=== PATIENT | male | born 1975 | race Caucasian/White ===

== ENCOUNTER 2016-07-31 09:36 | Day surgery (SDC) | payer BC ==
[2016-07-31 10:33] VITALS: PULSE 78
[2016-07-31] MEDS ORDERED: LR 1,000 ML IV ONE (10:34)
[2016-07-31] MEDS ORDERED: LIDOCAINE 1% 2 ML INJ ID PRN (10:34)
[2016-07-31] MEDS ORDERED: ONDANSETRON 4 MG/2 ML VIAL IVP PRN (12:55)
[2016-07-31] MEDS ORDERED: ACETAMINOPHEN 500 MG TAB PO PRN (12:55)
[2016-07-31] MEDS ORDERED: ALBUTEROL 3 ML DEYVIAL IH PRN (12:55)
[2016-07-31] MEDS ORDERED: NALOXONE HCL 0.4 MG/ML INJ IVP PRN (12:55)
--- NOTE | 2016-07-31 12:55 | PDANEPAE ---
ANE History of Present Illness DVERTICULITIS AND ESOPHAGEAL MOTILITY ISSUES ANE Past Medical History Past Medical History: flora - Cardiovascular History Hx Hypertension: No Hx Arrhythmias: No Hx Chest Pain: No Hx Coronary Artery / Peripheral Vascular Disease: No Hx CHF / Valvular Disease: No Hx Palpitations: No - Pulmonary History Hx COPD: No Hx Asthma/Reactive Airway Disease: No Hx Recent Upper Respiratory Infection: No Hx Oxygen in Use at Home: No - Neurologic History Hx Cerebrovascular Accident: No Hx Seizures: No Hx Dementia: No - Endocrine History Hx Diabetes: No - Renal History Hx Renal Disorders: No - Liver History Hx Hepatic Disorders: No - Neurological & Psychiatric Hx Hx Neurological and Psychiatric Disorders: No - Cancer History Hx Cancer: No - Congenital Disorder History Hx Congenital Disorders: No - GI History Hx Gastrointestinal Disorders: Yes - Chronic Pain History Chronic Pain: No ANE Review of Systems - Exercise capacity Exercise capacity: >=4 METS METS (RN): 4 METS - Systems Constitutional: Reports: no symptoms Cardiac: Reports: no symptoms Respiratory: Reports: no symptoms Gastrointestinal: Reports: other (as HPI) Muscolosketal: Reports: no symptoms ANE Patient History - Allergies Allergies/Adverse Reactions: No Known Allergies Allergy (Verified 07/31/16 10:37) - Home Medications Home Medications: PRILOSEC 06/28/16 [Last Taken 07/29/16] - NPO status NPO Since - Liquids (Date): 07/31/16 NPO Since - Liquids (Time): 05:00 NPO Since - Solids (Date): 07/30/16 NPO Since - Solids (Time): 12:00 - Anes Hx Anes Hx: no prior problems - Smoking Hx Smoking Status: Never smoked - Alcohol Use Alcohol Use: Occasionally ANE Labs/Vital Signs - Vital Signs Blood Pressure: 140/93 Heart Rate: 78 Respiratory Rate: 16 O2 Sat (%): 94 Height: 175.26 cm Weight: 124.738 kg ANE Physical Exam - Airway Mallampati Score: Class 2 Mouth exam: normal dental/mouth exam - Pulmonary Pulmonary: no respiratory distress - Cardiovascular Cardiovascular: regular rate and rhythym - ASA Status ASA Status: II ANE Anesthesia Plan Anesthesia Plan: GA with mask
[2016-07-31] MEDS ORDERED: PROPOFOL/EMULSION 500 MG/50 ML BOTTLE IV ONE ×2 (13:01→13:21)
[2016-07-31] MEDS ORDERED: LIDOCAINE 2% 5 ML SDV ONE (13:01)
--- NOTE | 2016-07-31 13:06 | PDGENHP ---
History & Physical Chief Complaint: heartburn, abnormal imaging History of Present Illness: 41 year old male wiht significant inflammation in the sigmoid colon presents for further evaluation. + diverticulitis. Chronic GERD. Pertinent Past, Social, Family History: SoHx: + alc. No cigs. FaMHx: No CRC. PMHx: JUANY, obesitiy, gerd, asthma Relevant Physical Exam: HEENT: anicteric. CV: RRR + s1s2. Lungs: CTAB No w/r/ r. Abd: benign Cardiorespiratory Assessment: ASA 3
--- NOTE | 2016-07-31 13:46 | POSTOPPROG ---
Post Op Note Date of Operation: 07/31/16 Surgeon: Germán Lira Pre-op Diagnosis: dysphagia, heartburn, abdno Post-op Diagnosis: colonic polyps x 2. HH. gastritis Indication: dysphagia. Abnl imaging Procedure: EGD with bx, colonoscopy with snare Findings: polyps, gastritis, gastric polyps Inf/Abcess present in the surg proc area at time of surgery?: No
[2016-07-31] MEDS ORDERED: fentaNYL 100 MCG/2 ML INJ ONE (14:08)
[2016-07-31] MEDS: fentaNYL 100 MCG/2 ML INJ IVP PRN ×2 (14:09→14:17)
[2016-07-31 14:14] VITALS: TEMP 97.9
--- NOTE | 2016-07-31 14:47 | GPN ---
[f rep st] PROCEDURE NOTE DATE OF PROCEDURE: 07/31/2016 PROCEDURE: Esophagogastroduodenoscopy with biopsy. INDICATION: The patient is a 41-year-old male who presents for evaluation of heartburn, as well as dysphagia. CONSENT: Risks, benefits, and alternatives of the procedure were discussed in great detail with the patient. Risks of infection, bleeding, perforation, and sedation were discussed. All questions answered and informed consent obtained. MEDICATIONS: Propofol. Please see anesthesiology record for details. ESTIMATED BLOOD LOSS: Insignificant. ESOPHAGOGASTROSCOPY EXAMINATION: The Olympus upper endoscope was inserted in the mouth and advanced to the esophagus. The proximal and mid esophagus were normal in appearance. Biopsies were taken of the midesophagus to rule out eosinophilic esophagitis. The patient was noted to have an irregular Z line and biopsies were taken. No esophagus was widely patent with no stricture or stenosis noted. The stomach was entered and closely examined, including retroflexed views of angularis, cardia, and fundus. A medium-sized hiatal hernia was noted. The mucosa in the antrum and the body of the stomach were erythematous in patchy distribution and biopsies were taken. Along the greater curvature, multiple small sessile polyps were seen and biopsies were taken. The duodenal bulb and second portion of the duodenum were normal in appearance. Biopsies taken to rule out celiac sprue. IMPRESSION: 1. Biopsies taken to rule out eosinophilic esophagitis. 2. Irregular Z-line, status post biopsy. 3. Hiatal hernia. 4. Gastritis, status post biopsy. 5. Gastric polyps, status post biopsy. 6. Biopsies taken to rule out celiac sprue. 7. Etiology? Suspect symptoms secondary to GERD? Recommend PPI therapy. RECOMMENDATIONS: 1. Follow up on biopsy results. 2. PPI therapy. 3. Proceed with colonoscopy. /[id number]/MODL MTDD
--- NOTE | 2016-07-31 16:18 | POSTANESTH ---
Post Anesthetic Evaluation Cardiovascular Status: Normal, Stable Respiratory Status: Normal, Stable Level of Consciousness/Mental Status: Can Participate in Eval Pain Control: Adequate, Prn Tx Ordered Nausea/Vomiting Control: Adequate, Prn Tx Ordered Complications Possibly Related to Anesthesia: None Noted
--- NOTE | 2016-07-31 16:38 | GPN ---
[f rep st] PROCEDURE NOTE DATE OF PROCEDURE: 07/31/2016 PROCEDURE: Colonoscopy with snare polypectomy. INDICATION: The patient is a 41-year-old male who presents for evaluation of abnormal imaging. He recently had a CT scan which showed significant inflammation of the sigmoid colon, which may represent diverticulitis. He presents for further evaluation. CONSENT: Risks, benefits, and alternatives of the procedure discussed in great detail with the patient. Risks of infection, bleeding, perforation, and sedation were discussed. All questions answered. Informed consent obtained. MEDICATIONS: Propofol. Please see anesthesiology record for details. ESTIMATED BLOOD LOSS: Insignificant. COLONOSCOPIC EVALUATION: A rectal examined was performed and internal hemorrhoids were appreciated.. The Olympus adult colonoscope was introduced in the rectum and advanced to the cecum where the ieocecal valve and appendiceal orifice were seen. The quality of prep was good. Multiple small diverticula were seen, mainly in the sigmoid colon but also in the distal descending colon. A 4 mm polyp was seen in the ascending colon, and another 5 mm polyp seen in the sigmoid colon. These were removed by cold snare polypectomy. IMPRESSION: 1. Diverticulosis. 2. Colonic polyps x2. RECOMMENDATIONS: 1. Fiber supplementation. 2. Await biopsy results. If adenomatous, recommend repeat colonoscopy in 5 years. 3. Continue previous medications. 4. Advance diet. 5. Follow up in office with Marquita Rivera PA-C in 6 weeks. /[id number]/MODL MTDD
[2016-07-31 18:33] VITALS: BP 132/92; RESP 26; O2SAT 96
== END 2016-07-31 16:34 | disposition home or self-care (01) ==
LOC: FSGY 09:36
PROVIDERS: ATTEND Internal Medicine Gastroenterology
PROC: 0DBK8ZX Excision of Ascending Colon, Via Natural or Artificial Opening Endoscopic, Diagnostic (ICD-10-PCS; principal; 2016-07-31 12:45)
PROC: 0DB98ZX Excision of Duodenum, Via Natural or Artificial Opening Endoscopic, Diagnostic (ICD-10-PCS; principal; 2016-07-31 12:45)
PROC: 0DB68ZX Excision of Stomach, Via Natural or Artificial Opening Endoscopic, Diagnostic (ICD-10-PCS; principal; 2016-07-31 12:45)
PROC: 0DB28ZX Excision of Middle Esophagus, Via Natural or Artificial Opening Endoscopic, Diagnostic (ICD-10-PCS; principal; 2016-07-31 12:45)
PROC: 0DBN8ZX Excision of Sigmoid Colon, Via Natural or Artificial Opening Endoscopic, Diagnostic (ICD-10-PCS; principal; 2016-07-31 12:45)
PROC: 0DB48ZX Excision of Esophagogastric Junction, Via Natural or Artificial Opening Endoscopic, Diagnostic (ICD-10-PCS; principal; 2016-07-31 12:45)
DX: D12.2 Benign neoplasm of ascending colon (principal); K63.5 Polyp of colon; K44.9 Diaphragmatic hernia without obstruction or gangrene; K29.70 Gastritis, unspecified, without bleeding; K57.30 Diverticulosis of large intestine without perforation or abscess without bleeding
CPT/HCPCS: J2704; J3010